=== PATIENT | female | born 1960 | race Caucasian/White ===

== ENCOUNTER 2025-03-10 13:05 | Outpatient (AMB) | payer MEDICARE, OTHER, SELFPAY ==
--- OUTSIDE RECORDS SUMMARY | 2023-10-02 04:00 | XMS_ITS ---
Author Organization [facility], [place] Address [address] [place] [address] Care Team Providers Care Repack Room Worker Name Role Phone Migration, Provider Unavailable Unavailable REASON FOR VISIT CPX Encounters Encounter Location Date Provider Diagnosis Formerly [facility], [address] [address] 10/02/2023 Provider Migration Plan Of Treatment No Information Progress Notes * RUSSELL BURGESSOB:1960 (64 yo F)Acc No.[id number]:10/02/2023 Progress Notes Patient: ARIANA JETER Provider: Syeda stein Migration :1960 A ge:62 Y S ex:Female Date:10/02/2023 Address:[address] [place], [place] [id number] Subjective: * Chief Complaints: * C PX * Ocular Surgical History: Objective: Vision Examination: * Electronic signature of Prov ider Migration on 03/10/2025 at 04:26 PM EST Sign off status: Pending * Provider: Syeda stein Migration Date: 0 10/02/2023 Generated for Kali lynn/Tammie/eTyesseniasmitting on: 1 05/11/2024 04:26 PM EST
--- NOTE | 2025-03-10 13:16 | MHC.PC.OV ---
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 Patient was canceled in error. Intake Note: New patient visit Leadite Heater Required: No Allergies acetaminophen (From Percocet) Adverse Reaction (Intermediate, Verified 03/10/25 13:20) low blood pressure oxycodone (From Percocet) Adverse Reaction (Intermediate, Verified 03/10/25 13:20) low blood pressure Tobacco use date assessed: 03/10/25 Fall risk assessment: No Falls in past year Last assessed Fall Risk: 03/10/25 Dental Screening Dental Screen Date: 03/10/25 Did you have a dental visit in the last 12 months?: Yes Did you have a dental problem in the last 6 months where you did not have access to dental care?: No Was dental information given to patient?: Patient has dentist HPI HPI Comments History of Present Illness Details 64 year old female with a past medical history of htn, hypothyroid, osteoporosis presenting to establish care HTN: Stable on lisinopril 20mg daily. Blood pressure is well controlled on current medications Osteoporosis: On raloxifene. Hypothyroid-stable on levothyroxine. Mammo 01/2025 Colonoscopy 12/30/2019 due 10 years DXA: 12/04/2023- Follows with licensed electrician Tiffanie. RSV: 05/01/2023 Td 2019 Shingles 2+ ROS CONSTITUTIONAL: Denies weight loss, fever and chills. HEENT: Denies changes in vision and hearing. RESPIRATORY: Denies SOB and cough. CV: Denies palpitations and CP GI: Denies abdominal pain, nausea, vomiting and diarrhea. : Denies dysuria and urinary frequency. MSK: Denies new myalgia and joint pain. SKIN: Denies rash and pruritus. NEUROLOGICAL: Denies headache PSYCHIATRIC: Denies recent changes in mood. PHYSICAL EXAM: GENERAL: Alert and oriented x 3. NAD EYES: EOMI. Anicteric. HENT: Moist mucous membranes. No scleral icterus. No cervical lymphadenopathy. LUNGS: Clear to auscultation bilaterally. CARDIOVASCULAR: Regular rate and rhythm. No murmur. No JVD. ABDOMEN: Soft, non-tender +bs EXTREMITIES: No edema. Non-tender. SKIN: No rashes or lesions. Warm. NEUROLOGIC: No focal neurological deficits. CN II-XII grossly intact PSYCHIATRIC: Cooperative. Appropriate mood and affect [facility] Social History Housing: House Patient Tobacco Use Status: Never used Tobacco service: No Current occupational status: retired Cognitive needs: No Hearing needs: No Vision needs: No Questionnaire Thrive Questionnaire Date Thrive assessed: 03/03/25 I am a: Patient What is your living situation today?: I have a steady place to live Within the past 12 months, did the food you bought not last and you didn't have the money to get more?: Never true Within the past 12 months, did you worry whether your food would run out before you got money to buy more?: Never true Do you have trouble paying for medicines?: No Do you have trouble getting transportation to medical appointments?: No Do you have trouble paying your heating and electricity bill?: No Do you have trouble taking care of your child, family member or friend?: No Do you have trouble with day-to-day activities such as bathing, preparing meals, shopping, managing finances, etc.?: No Are you currently unemployed and looking for a job?: No Are you interested in more education?: Yes Please select the resources that you would like help with: None Currently or been in a relationship where the following occur: No concerns reported THRIVE Score: 0 AUDIT C Alcohol Use Questionnaire (AUDIT-C) 1. How often do you have a drink containing alcohol?: 2-3 times a week 2. How many drinks containing alcohol do you have on a typical day when you are drinking?: 1 or 2 3. How often do you have six or more drinks on one occasion?: Never Total Score: 3 GUILHERME-7 AMB Questionnaire GUILHERME-7 Feeling nervous, anxious, or on edge: 0 = Not at all Not being able to stop or control worryin = Not at all Worrying too much about different things: 0 = Not at all Trouble relaxin = Not at all Being so restless that it is hard to sit still: 0 = Not at all Becoming easily annoyed or irritable: 0 = Not at all Feeling afraid as if something awful might happen: 0 = Not at all Total GUILHERME-7 score (0-4 normal; 5-9 mild; 10-14 moderate; 15-21 severe): 0 Source: Developed by Drs. Shahid Cervantes, Elina Robles, Brent Sepulveda and colleagues, with an educational remy from [employer]. Physical exam (Primary Care) Vital Signs: Last Vital Signs Temp 97.3 F 03/10/25 13:19 Pulse 66 03/10/25 13:19 Resp 14 03/10/25 13:19 BP 126/86 03/10/25 13:19 Pulse Ox 100 03/10/25 13:19 Oxygen Delivery Method Room Air 03/10/25 13:19 BMI result Body Mass Index 31.1 Tobacco/Smoking Status: Tobacco use Status Tobacco use date assessed 03/10/25 03/10/25 13:24 Patient Tobacco Use Status Never used Tobacco 03/10/25 13:24 Thrive Assessment: Date of Thrive Assessment Date Thrive assessed 03/03/25 03/10/25 13:18 Currently or been in a relationship where the following occur: No concerns reported Coding Level of Care Code Add On Preventative Visit Only Diagnoses Encounter to establish care Z76.89 Hypothyroidism, unspecified type E03.9 Hypothyroidism type: unspecified H/O section Z98.891 History of bunionectomy Z98.890 H/O colonoscopy Z98.890 Primary hypertension I10 Hypertension type: primary hypertension Age related osteoporosis, unspecified pathological fracture presence M81.0 Osteoporosis type: age-related Presence of current pathological fracture: unspecified Assessment & Plan Assessment & Plan (1) Encounter to establish care: Code(s): Z76.89 - Persons encountering health services in other specified circumstances Category: Medical (2) Hypothyroid: Code(s): E03.9 - Hypothyroidism, unspecified Category: Medical Qualifiers: Hypothyroidism type: unspecified Qualified Code(s): E03.9 - Hypothyroidism, unspecified (3) H/O section: Code(s): Z98.891 - History of uterine scar from previous surgery (4) History of bunionectomy: Code(s): Z98.890 - Other specified postprocedural states (5) H/O colonoscopy: Code(s): Z98.890 - Other specified postprocedural states (6) Hypertension: Code(s): I10 - Essential (primary) hypertension Category: Medical Qualifiers: Hypertension type: primary hypertension Qualified Code(s): I10 - Essential (primary) hypertension (7) Osteoporosis: Code(s): M81.0 - Age-related osteoporosis without current pathological fracture Category: Medical Qualifiers: Osteoporosis type: age-related Presence of current pathological fracture: unspecified Qualified Code(s): M81.0 - Age-related osteoporosis without current pathological fracture Plan 64 year old to establish care Past medical, surgical, social reviewed HTN is adequately controlled on current medication Hypothyroid-stable on levothyroxine Osteoporosis-repeat DXA when due Orders: Orders Varicella IgG Antibody 03/10/25 Z13.0 - Encounter for screening for diseases of the blood and blood-forming organs and certain disorders involving the immune mechanism, Z13.228 - Encounter for screening for other metabolic disorders, Z13.29 - Encounter for screening for other suspected endocrine disorder MMR IgG Measles Mumps Rubella 03/10/25 Z13.0 - Encounter for screening for diseases of the blood and blood-forming organs and certain disorders involving the immune mechanism, Z13.228 - Encounter for screening for other metabolic disorders, Z13.29 - Encounter for screening for other suspected endocrine disorder XR DEXA axial skeleton 10 Months M81.0 - Age-related osteoporosis without current pathological fracture Complete Blood Count Auto Diff 03/10/25 E03.9 - Hypothyroidism, unspecified, I10 - Essential (primary) hypertension, M81.0 - Age-related osteoporosis without current pathological fracture, R35.89 - Other polyuria, Z13.0 - Encounter for screening for diseases of the blood and blood-forming organs and certain disorders involving the immune mechanism Comprehensive Met. Panel 03/10/25 E03.9 - Hypothyroidism, unspecified, I10 - Essential (primary) hypertension, M81.0 - Age-related osteoporosis without current pathological fracture, R35.89 - Other polyuria, Z13.0 - Encounter for screening for diseases of the blood and blood-forming organs and certain disorders involving the immune mechanism Lipid Panel 03/10/25 E03.9 - Hypothyroidism, unspecified, I10 - Essential (primary) hypertension, M81.0 - Age-related osteoporosis without current pathological fracture, R35.89 - Other polyuria, Z13.0 - Encounter for screening for diseases of the blood and blood-forming organs and certain disorders involving the immune mechanism TSH reflex Free T4 03/10/25 E03.9 - Hypothyroidism, unspecified, I10 - Essential (primary) hypertension, M81.0 - Age-related osteoporosis without current pathological fracture, R35.89 - Other polyuria, Z13.0 - Encounter for screening for diseases of the blood and blood-forming organs and certain disorders involving the immune mechanism Hemoglobin A1c 03/10/25 E03.9 - Hypothyroidism, unspecified, I10 - Essential (primary) hypertension, M81.0 - Age-related osteoporosis without current pathological fracture, R35.89 - Other polyuria, Z13.0 - Encounter for screening for diseases of the blood and blood-forming organs and certain disorders involving the immune mechanism Vitamin D 1,25 dihydroxy 03/10/25 M81.0 - Age-related osteoporosis without current pathological fracture
[2025-03-10 13:19] VITALS: BP 126/86; PULSE 66; RESP 14; TEMP 36.3; O2SAT 100; BMI 31.1
--- OUTSIDE RECORDS SUMMARY | 2025-03-10 16:27 | XMS_ITS ---
Author Name Nikolay Gibbs Address Unknown Organization [facility] Care Team Providers Care Health Unit Coordinator Name Role Phone Unavailable Primary Care Physician Unavailab le History Of Present Illness 1. This is a 64 year old female who is following up for neoplasm of uncertain behavior on the left ankle and left dorsal great toe. She was seen on January 13, 2025, at which time she was treated with Liquid Nitrogen. Total Number of Verruca Vulgaris (Including non-treated verruca): 2.0.The patientpresents for focused visit.Today the patient reports: Quality: no pain. 2. This is a 64 year old female who is following up for actinic keratoses on the left cheek and left eyebrow. She was seen on January 13, 2025, at which time she was treated with Liquid Nitrogen. Pain Intensity: 0.0 - No Pain. Total Number (Including non-treated): 3.0.The patient presents for focused visit.Today the patient reports: Pain Intensity 0.0 - No Pain.Interval History: States that the AK on ankle worsening. Gotten bigger and crusting over. Has been using Vaseline. Allergies, Adverse Reactions, Alerts Substance RxNorm Reaction(s) Severity Status Start Da te Percocet unspecified active Medications Medication Generic Name RxNorm Strength Strength Unit Route Dose Dose Form Frequency Date Started Date Ended Status Indication Sig Calcium 600 calcium carbonat e 600 mg calcium (1,500 mg) Oral 1 table t qd active levothyroxi ne levothyr oxine 50 mcg Oral 1 table t q active lisinopril [place]isinopr [place] 616382 20 mg Oral 1 table t qd active raloxifene raloxife ne 4813432 60 mg Oral 1 table t qd active Vitamin D3 cholecal ciferol (vitamin D3) 50 mcg (2,000 unit) Oral 1 capsu le qd active Problems Problem Code Type Status Date of Diagnosis Date of Resolution History of clinical finding in subject (situation) 661575010(SN OMED) Problem active Epidermoid cyst of skin (disorder) 228708968(SN OMED) Diagnosis active 02/02/2015 Family history of malignant neoplasm (situation) 790584537(SN OMED) Diagnosis active 10/08/2020 Actinic keratosis (disorder) 891825043(SN OMED) Diagnosis active 10/08/2020 Seborrheic keratosis (disorder) 171586213(SN OMED) Diagnosis active 10/08/2020 Hemangioma of skin and subcutaneous tissue (disorder) 671773509(SN OMED) Diagnosis active 10/08/2020 Hypertrophic condition of skin (disorder) 75150533(SNO MED) Diagnosis active 10/08/2020 Disorder of pigmentation (disorder) 015611844(SN OMED) Diagnosis active 10/08/2020 Family history of malignant neoplasm (situation) 852671896(SN OMED) Diagnosis active 09/15/2021 Melanocytic nevus (disorder) 090019282(SN OMED) Diagnosis active 09/15/2021 Seborrheic keratosis (disorder) 202177831(SN OMED) Diagnosis active 09/15/2021 Hemangioma of skin and subcutaneous tissue (disorder) 784463985(SN OMED) Diagnosis active 09/15/2021 Hypertrophic condition of skin (disorder) 43790204(SNO MED) Diagnosis active 09/15/2021 Disorder of pigmentation (disorder) 204602567(SN OMED) Diagnosis active 09/15/2021 Family history of malignant neoplasm (situation) 246456049(SN OMED) Diagnosis active 10/11/2022 Melanocytic nevus (disorder) 381472511(SN OMED) Diagnosis active 10/11/2022 Disseminated superficial actinic porokeratosis (disorder) 83155408(SNO MED) Diagnosis active 10/11/2022 Seborrheic keratosis (disorder) 401310502(SN OMED) Diagnosis active 10/11/2022 Disorder of skin (disorder) 93194647(SNO MED) Diagnosis active 10/11/2022 Hemangioma of skin and subcutaneous tissue (disorder) 469403113(SN OMED) Diagnosis active 10/11/2022 Disorder of pigmentation (disorder) 390719459(SN OMED) Diagnosis active 10/11/2022 History of osteopenia (situation) 247442397(SN OMED) Problem active Actinic keratosis (disorder) (SN OMED) Problem active Inflamed seborrheic keratosis (disorder) 873852498(SN OMED) Diagnosis active 11/28/2023 Family history of malignant neoplasm (situation) 393745688(SN OMED) Diagnosis active 11/28/2023 Melanocytic nevus of trunk (disorder) 106758142(SN OMED) Diagnosis active 11/28/2023 Disseminated superficial actinic porokeratosis (disorder) 98970224(SNO MED) Diagnosis active 11/28/2023 Seborrheic keratosis (disorder) 044984883(SN OMED) Diagnosis active 11/28/2023 Disorder of skin (disorder) 58860459(SNO MED) Diagnosis active 11/28/2023 Caf au lait spot (disorder) 436171788(SN OMED) Diagnosis active 11/28/2023 Hemangioma of skin and subcutaneous tissue (disorder) 086796818(SN OMED) Diagnosis active 11/28/2023 Disorder of pigmentation (disorder) 977878612(SN OMED) Diagnosis active 11/28/2023 Patient encounter status (finding) 592988918(SN OMED) Diagnosis active 11/28/2023 Actinic keratosis (disorder) (SN OMED) Diagnosis active 01/13/2025 Neoplasm of uncertain behavior of skin (disorder) 72807727(SNO MED) Diagnosis active 01/13/2025 Disorder of pigmentation (disorder) 590199787(SN OMED) Diagnosis active 01/13/2025 Hypertrophic condition of skin (disorder) 40573819(SNO MED) Diagnosis active 01/13/2025 Family history of malignant neoplasm (situation) 013254852(SN OMED) Diagnosis active 01/13/2025 Melanocytic nevus of trunk (disorder) 019761891(SN OMED) Diagnosis active 01/13/2025 Seborrheic keratosis (disorder) 976643571(SN OMED) Diagnosis active 01/13/2025 Caf au lait spot (disorder) 981813465(SN OMED) Diagnosis active 01/13/2025 Hemangioma of skin and subcutaneous tissue (disorder) 815314273(SN OMED) Diagnosis active 01/13/2025 Patient encounter status (finding) 072083895(SN OMED) Diagnosis active 01/13/2025 Cerebrovascular accident (disorder) 254703883(SN OMED) Problem active Neoplasm of uncertain behavior of skin (disorder) 09710649(SNO MED) Diagnosis active 03/05/2025 Hypertrophic condition of skin (disorder) 14675240(SNO MED) Diagnosis active 03/05/2025 Actinic keratosis (disorder) 030306941(SN OMED) Diagnosis active 03/05/2025 Results No data Encounters Service provided at [address], [address], [place], [place] [id number]. Office phonenumber is [phone]. Office fax number is [phone]. Encounter Diagnosis Location Date / Time Type Disc harge Status Neoplasm of Uncertain Behavior (D48.5)Irritated Skin Tag (L91.8)Actinic Keratoses (L57.0) [facility] 03/05/2025 19:15:00 UTC [id number] Reason For Referral No data Procedures Procedure Date Documentation of current medications (pr ocedure) 03/06/2025 12:00 am UTC Shave biopsy (procedure) 03/05/2025 12:0 0 am UTC Destruction of premalignant skin lesion (procedure) 03/05/2025 12:00 am UTC Destruction of premalignant skin lesion (procedure) 01/13/2025 12:00 am UTC Cryotherapy of skin lesion with liquid n itrogen (procedure) 01/13/2025 12:00 am UTC Cryotherapy of skin lesion with liquid n itrogen (procedure) 11/28/2023 12:00 am UTC Cryotherapy of skin lesion with liquid n itrogen (procedure) 10/08/2020 12:00 am UTC Documentation of past medical history (p rocedure) Documentation of past medical history (p rocedure) Documentation of past medical history (p rocedure) Documentation of past medical history (p rocedure) Documentation of past medical history (p rocedure) Documentation of past medical history (p rocedure) Documentation of past medica l history (procedure) R foot surgery L foot surgery C section Review Of Systems Provider reviewed on Mar 05, 2025.A complete review of systems was performed and was notable for thyroid problems.No Problems With Healing, No Problems With Scarring (hypertrophic Or Keloid), No Problems With Bleeding, No Immunosuppression, No Hay Fever, No Chest Pain, No Fever Or Chills, No Night S weats, No Unintentional Weight Loss, No Sore Throat, No Blurry Vision, No Abdominal Pain, No BloodyStool, No Bloody Urine, No Joint Aches, No Muscle Weakness, No Neck Stiffness, No Headaches, No Seizures, No Shortness Of Breath, No Wheezing, No Anxiety, And No Depression. Assessment 1.Neoplasm of Uncertain Behavior, Status: Inadequately ControlledAdditional NotesBiopsy by Shave Method: left ankle; left dorsal great toe.Photo- Documentation:.2.Irritated Skin Tag, Status: ResolvedCounselingAdditional Notes3.Actinic Keratoses, Status: Not At Treatment GoalCounselingLiquid Nitrogen: left cheek; Number of freeze-thaw Cycles - 2 freeze-thaw cycles; Application Tool - Liquid Nitrogen Sprayer; Duration of freeze thaw-cycle (seconds) - 5.Additional Notes Plan of Care Future visit PRN - Follow up PRN - (once testing is complete) Instructions * I counseled the patient regarding the following:Skin Care: Skin tags can be removed surgically or with liquid nitrogen. If lesions become bothersome, reach out to office for further intervention.Expectations: Acrochordons are benign skin growths usually found around the neck or the armpits. Sometimes, they get caught on clothing or jewelry and get inflamed. * I counseled the patient regarding the following:Skin Care: Sun protective clothing and broad spectrum sunscreen can prevent the formation of Actinic Keratoses. AKs can resolve with cryotherapy, photodynamic therapy, imiquimod, topical 5-FU.Expectations: Actinic Keratoses are precancerous proliferations that occur within sun damaged skin. If untreated, a small subset of AKs can develop into Squamous Cell Carcinoma.Contact Office if: If AKs fail to resolve despite treatment, or if you develop a side effect from therapy, such as unbearable crusting, scabbing, redness and tenderness.I recommendedthe following: Broad Spectrum Sunscreen SPF 30+ Social History Code Activity Start Date End Date [id number] (SNOMED) Never smoker Sex Female Sexual orientation Unspecified Gender identity Unspecified Vital Signs No data Insurances Coverage Status Coverage Type Relationship to Subscriber Member Identifier Subscriber Identifier Group Identifier Payer Identifier Inactive 1 Self [id number] Inactive Self [id number] Active Self [id number] Inactive 2 Self [id number] Active Self [id number] [facility]
--- OUTSIDE RECORDS SUMMARY | 2025-03-10 16:27 | XMS_ITS | Patient Health Record ---
Author Organization [facility] Address [address] [place] [address] Care Team Providers Care Running Specialist Name Role Phone Dario Bacon Primary Care Provider UnavailMeng Diaz Unavailable [phone] Allergies Allergen (clinical drug ingredient) Drug/Non Drug Allergy documented on EMR Reaction Allergy Type Onset Date Status meperidine Demerol sensitivity Drug Allergy Acti ve codeine Codeine sensitivity Drug Allergy Activ e morphine Morphine sensitivity Drug Allergy Activ e Reason For Referral No Information Medications Medication SIG (Take, Route, Frequency, Duration) Notes Start Date End Date Status Clotrimazole-Betamethasone 1-0.05 % External; Duration: 15 Activ e Calcium Active Vitamin D Active Levothyroxine Sodium 50 MCG Oral; Duration: 90 Active Raloxifene HCl 60 MG Oral; Duration: 90 Active Social History Tobacco Use: Social History Observation Description Date Details (start date - stop date) Never Smoker NA - NA Tobacco Use/Smoking Question Answer Notes Are you a: nonsmoker Additional Findings: Tobacco Non-User Current no n-smoker Alcohol Screen Question Answer Notes Did you have a drink contain ing alcohol in the past year? Yes How often did you have a dri nk containing alcohol in the past year? Monthly or less (1 point) Points 1 Interpretation Negative Tobacco use other than smoking: Question Answer Notes Are you an other tobacco user? No Problems Problem Type SNOMED Code ICD Code Onset Dates Problem Status W/U Status Risk Notes Problem Acquired hammer toe of right foot ([id number] 105) Other hammer toe(s) (acquired), right foot (M20.41) Active confirmed Plan Of Treatment No Information Insurance Providers Payer Name Payer Address Payer Phone Subscriber Number Group Number Insured Name Patient Relationship to Insured Coverage Start Date Coverage End Date [facility] Blue [facility] [address] [place] [address] [phone] [id number] Pradeep Starks Self - patient is the insured Medical (General) History Medical History History ICD Code Measles Mumps Chicken pox Thyroid Surgical History Surgery Date(Month/Year) tonsillectomy and adenoidectomy 1964 section 1991 bunionectomy-left 1998 colonoscopy 12/29/19 Hospitalization History Reason Date(Month/Year) childbirth
--- OUTSIDE RECORDS SUMMARY | 2025-03-10 16:27 | XMS_ITS | Patient Health Record ---
Author Organization [facility] – [place] [place] [facility] [place] Address [address] [address] Care Team Providers Care Chiropractic Teacher Name Role Phone Migration, Provider Unavailable Unavailable Cristina Sherley Unavailable [phone] Reason For Referral No Information Medications Medication SIG (Take, Route, Frequency, Duration) Notes Start Date End Date Status Lisinopril 20 MG Tablet 1 tablet Orally Once a day; Duration: 90 days 10/29/2024 Active Levothyroxine Sodium 50 MCG Tablet 1 tablet in the morning on an empty stomach Orally Once a day; Duration: 90 days 10/29/2024 Active Raloxifene HCl 60 MG Tablet 1 tablet Ora lly Once a day; Duration: 90 days 10/29/2024 Active Problems Problem Type SNOMED Code ICD Code Onset Dates Problem Status W/U Status Risk Notes Problem Age-related osteoporosis (760760817) Age-related osteoporosis without current pathological fracture (M81.0) Active confirmed Encounters Encounter Location Date Provider Diagnosis [address] [id number] 10/29/2024 Sherley Evans [address] [address] 10/29/2024 Sherley Evans Hypothyroidism, unspecified type E03.9 ; Age-related osteoporosis without current pathological fracture M81.0 and Benign essential hypertension I10 Assessments Encounter Date Diagnosis (ICD Code) Assessment Notes Treatment Notes Treatment Clinical Notes Section Notes 10/29/2024 Hypothyroidism, unspecified type (ICD-10 - E03.9) 10/29/2024 Age-related osteoporosis without current pathological fracture (ICD-10 - M81.0) 10/29/2024 Benign essential hypertension (ICD-10 - I10) Plan Of Treatment No Information Insurance Providers Payer Name Payer Address Payer Phone Subscriber Number Group Number Insured Name Patient Relationship to Insured Coverage Start Date Coverage End Date [facility] Insurance [address] JENNIFER Ansari [id number] ARIANA BURGESS Self - patient is the insured
== END 2025-03-10 13:58 | disposition home or self-care (01) ==
LOC: HO.HMCFM 13:06
PROVIDERS: PCP Internal Medicine; Visit Provider Internal Medicine
DX: I10 Essential (primary) hypertension (principal); M81.0 Age-related osteoporosis without current pathological fracture; E03.9 Hypothyroidism, unspecified; Z98.891 History of uterine scar from previous surgery

== ENCOUNTER 2025-03-10 13:05 | Outpatient (REF) | payer MEDICARE, OTHER, SELFPAY ==
[2025-03-10 18:18] LABS: MANUAL DIFF FLAG NO
[2025-03-10 18:23] LABS: Hematocrit 41.9 % (37.0-47.0); Hemoglobin 13.3 g/dl (12.0-16.0); Imm Gran Abs Auto 0.01 X10*3/uL (0.00-0.03); Imm Gran Pct Auto 0.1 % (0.0-0.4); Lymphocytes Absolute Auto 2.1 X10*3/uL (1.2-4.9); Mean Corpuscular HGB Conc 31.7 g/dl (31.0-35.0); Mean Corpuscular Hemoglobin 26.9 pg (27.0-33.0); Mean Corpuscular Volume 84.6 fL (80.0-98.0); NRBC Pct Auto 0.0 /100WBC (0.0-0.2); Platelet Count 248 X10*3/uL (160-400); Red Blood Count 4.95 X10*6/uL (4.20-5.50); White Blood Count 7.8 X10*3/uL (4.8-10.8)
[2025-03-10 18:24] LABS: NRBC Abs Auto 0.000 X10*3/uL (0.0-0.012)
[2025-03-10 18:49] LABS: Alanine Aminotransferase 27 U/L (0-31); Albumin Level 4.4 g/dL (3.5-5.0); Alkaline Phosphatase 80 U/L (39-117); Anion Gap 13 (12-20); Aspartate Amino Transferase 70 U/L (5-31); Blood Urea Nitrogen 14 mg/dL (9-16); Calcium 9.1 mg/dL (8.4-10.2); Carbon Dioxide 25 mmol/L (22-29); Chloride 105 mmol/L (96-108); Cholesterol 234 mg/dL (<200); Estimated Glomerular Filt Rate > 60; HDL Cholesterol 63 mg/dL (>40); Potassium 4.3 mmol/L (3.3-5.1); Sodium 139 mmol/L (135-145); Total Protein 7.1 g/dL (6.5-8.0); Triglycerides 116 mg/dL (<150)
[2025-03-11 17:43] LABS: Rubeola IgG (Measles) >300.00 AU/mL
[2025-03-14 15:23] LABS: VITAMIN D (1,25 OH) D3 32 pg/mL; Vit D (1,25-Dihydroxy) Total 32 pg/mL (18-72); Vitamin D (1,25 OH) D2 <8 pg/mL
== END 2025-03-10 13:06 | disposition home or self-care (01) ==
LOC: HO.WFDLDS 13:05
PROVIDERS: Visit Provider Internal Medicine
DX: I10 Essential (primary) hypertension (principal); R35.89 Other polyuria; M81.0 Age-related osteoporosis without current pathological fracture; E03.9 Hypothyroidism, unspecified; Z76.89 Persons encountering health services in other specified circumstances; Z98.891 History of uterine scar from previous surgery; Z98.890 Other specified postprocedural states; Z13.0 Encounter for screening for diseases of the blood and blood-forming organs and certain disorders involving the immune mechanism; Z13.29 Encounter for screening for other suspected endocrine disorder; Z13.228 Encounter for screening for other metabolic disorders; Z13.1 Encounter for screening for diabetes mellitus
CPT/HCPCS: 36415; 80053; 80061; 82652; 83036; 84443; 85025; 86735; 86762; 86765; 86787; 99202